=== PATIENT | male | born 1965 | race Caucasian/White ===

== ENCOUNTER 2019-09-29 10:42 | Emergency (ER) | payer OTHER ==
[2019-09-29 10:48] VITALS: BP 124/82; PULSE 67; TEMP 98; BMI 32.5
--- NOTE | 2019-09-29 10:48 | PDOC ---
Rapid Medical Evaluation Medical Evaluation: Allergies Allergy/AdvReac Type Severity Reaction Status Date / Time No Known Allergies Allergy Verified 08/25/14 11:25 09/29/19 10:46 54 yo M Luxembourgish speaking h/o HTN c/o itchy rash to anterior neck and chest x 1 week after touching poison ellie. patient is a cleaning laborer. denies f/c/n/v/d, cp, sob, abd pain. VSS rash noted to anterior chest A/P: Rash to fast track
--- NOTE | 2019-09-29 11:29 | PDOC ---
History of Present Illness - General Chief Complaint: Poison [place],Poison Erica Exposure Stated Complaint: SKIN RASH Time Seen by Provider: 09/29/19 11:07 History Source: Patient Exam Limitations: Clinical Condition - History of Present Illness Initial Comments: 09/29/19 11:59 Patient with no significant past medical history present with complaint of one- week history of poison erica to anterior chest and neck and upper arms which has been persistent for a week now. 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 Patient has not taken anything for symptoms. Patient describes rash as red itchy rash to anterior chest and neck area. Denies shortness of breath, choking sensation. Denies any other symptoms Is this a multiple visit Asthma Patient?: No Timing/Duration: 1 week Past History - Medical History Allergies/Adverse Reactions: Allergies Allergy/AdvReac Type Severity Reaction Status Date / Time No Known Allergies Allergy Verified 09/29/19 10:48 Home Medications: Ambulatory Orders Furosemide [Lasix -] 20 mg PO DAILY 08/25/14 Atorvastatin Ca [Lipitor] 40 mg PO HS #30 tablet 08/30/14 Carvedilol [Coreg -] 6.25 mg PO BID #30 tablet 08/30/14 Lisinopril [Prinivil] 5 mg PO DAILY #30 tablet 08/30/14 Spironolactone 25 mg PO DAILY #30 08/30/14 Warfarin Sodium [Coumadin] 6 mg PO DAILY #30 08/30/14 Acetaminophen [Tylenol -] 500 mg PO Q4H #100 tablet 07/16/19 Azithromycin [Zithromax 250mg Tablets -] 250 mg PO UTDICT #6 tab 07/16/19 Enalapril Maleate [Vasotec] 20 mg PO BID #60 tablet 07/16/19 Famotidine [Pepcid -] 20 mg PO BID 5 Days #10 tablet 09/29/19 Hydrocortisone 2.5% Lotion [Hytone 2.5% Lotion -] 1 applic TP BID PRN 7 Days #1 bottle 09/29/19 predniSONE [Deltasone -] 20 mg PO BID 5 Days #10 tablet 09/29/19 Cardiac Disorders: Yes (MUR MUR, TAKES COUMADIN) COPD: No HTN: Yes - Psycho-Social/Smoking History Smoking History: Never smoked Have you smoked in the past 12 months: No Number of Cigarettes Smoked Daily: 0 Cigars Per Day: 0 Information on smoking cessation initiated: No 'Breaking Loose' booklet given: 08/25/14 - Substance Abuse Hx (Audit-C & DAST Scrn) How often the patient has a drink containing alcohol: Never Score: In Men: 4 or > Positive; In Women: 3 or > Positive: 0 Screen Result (Pos requires Nsg. Audit-10AR): Negative In the last yr the pt used illegal drug/Rx for NonMed reason: No Score: Yes response is considered Positive: 0 Screen Result (Positive result requires Nsg. DAST-10): Negative Review of Systems - Review of Systems Able to Perform ROS?: Yes Is the patient limited Salvadorean proficient: No Constitutional: No: Chills, Fever, Malaise HEENTM: No: Symptoms Reported, See HPI, Eye Pain, Blurred Vision, Tearing, Recent change in vision, Double Vision, Cataracts, Ear Pain, Ocular Prothesis, Ear Discharge, Nose Pain, Nose Congestion, Tinnitus, Nose Bleeding, Hearing Loss, Throat Pain, Throat Swelling, Mouth Pain, Dental Problems, Difficulty Swallowing, Mouth Swelling, Other Respiratory: No: Symptoms reported, See HPI, Cough, Orthopnea, Shortness of Breath, SOB with Exertion, SOB at Rest, Stridor, Wheezing, Productive cough, Hemoptysis, Other Cardiac (ROS): No: Symptoms Reported, See HPI, Chest Pain, Edema, Irregular Heart Rate, Lightheadedness, Palpitations, Syncope, Chest Tightness, Other ABD/GI: No: Symptoms Reported Musculoskeletal: No: Symptoms Reported Integumentary: Yes: Symptoms Reported, See HPI, Pruritus, Rash Neurological: No: Headache All Other Systems: Reviewed and Negative *Physical Exam - Vital Signs Last Vital Signs Temp Pulse Resp BP Pulse Ox 98.0 F 67 18 124/82 96 09/29/19 10:45 09/29/19 10:45 09/29/19 10:45 09/29/19 10:45 09/29/19 10:45 - Physical Exam 09/29/19 12:03 GENERAL: Well developed, well nourished. Awake and alert. No acute distress. HEENT: Normocephalic, atraumatic. PERRLA, EOMI. No conjunctival pallor. Sclera are non-icteric. Moist mucous membranes. Oropharynx is clear. NECK: Supple. Full ROM. CARDIOVASCULAR: Regular rate and rhythm. No murmurs, rubs, or gallops. Distal pulses are 2+ and symmetric. PULMONARY: No evidence of respiratory distress. Lungs clear to auscultation bilaterally. No wheezing, rales or rhonchi. MUSCULOSKELETAL Normal range of motion at all joints. SKIN: Warm and dry. Normal capillary refill. Diffuse urticarial vesicular rashes to anterior upper chest, upper back and front of neck and bilateral medial side of upper arms with mild excoriations from scratching NEUROLOGICAL: Alert, awake, appropriate. Gait is normal without ataxia. PSYCHIATRIC: Cooperative. Good eye contact. Appropriate mood General Appearance: Yes: Nourished, Appropriately Dressed. No: Apparent Distress Medical Decision Making - Medical Decision Making 09/29/19 12:01 Patient with no significant past medical history present with complaint of one- week history of poison erica to anterior chest and neck and upper arms which has been persistent for a week now. 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 Patient has not taken anything for symptoms. Patient describes rash as red itchy rash to anterior chest and neck area. Denies shortness of breath, choking sensation. Denies any other symptoms Exam significant for diffuse vesicular urticarial rash to anterior upper chest, proximal arm and neck area with excoriations from scratching. Oropharynx patent. No lip or tongue swelling. Given symptoms been going on for a week, will treat patient outpatient basis on prednisone twice daily for 5-day and Pepcid for 5 days and topical hydrocortisone with dermatology follow-up. Strict follow-up instructions discussed with patient and patient will follow-up with dermatology Discharge - Discharge Information Problems reviewed: Yes Clinical Impression/Diagnosis: Poison erica dermatitis Condition: Stable Disposition: HOME - Admission No - Additional Discharge Information Prescriptions: predniSONE [Deltasone -] 20 mg PO BID 5 Days #10 tablet Hydrocortisone 2.5% Lotion [Hytone 2.5% Lotion -] 1 applic TP BID PRN 7 Days #1 bottle PRN Reason: rash Famotidine [Pepcid -] 20 mg PO BID 5 Days #10 tablet - Follow up/Referral Referrals: Evie Chambers MD [Staff Physician] - - Patient Discharge Instructions Patient Printed Discharge Instructions: DI for Poison Erica Allergy Additional Instructions: Use medications as prescribed. Refrain from scratching the rash area. Follow- up referred dermatology if no improvement in 4 days - Post Discharge Activity
== END 2019-09-29 11:42 | disposition home or self-care (01) ==
LOC: JERFT 10:42
DX: L23.7 Allergic contact dermatitis due to plants, except food (principal)
CPT/HCPCS: 99282-25